=== PATIENT | male | born 1955 | race Asian ===

== ENCOUNTER 2019-04-28 11:41 | Emergency (ER) | payer BC ==
[~2019-04-28] VITALS: Ht 182.9 cm; Wt 107.0 kg
[2019-04-28] MEDS ORDERED: BACITRACIN ZINC OINT UDPKT TOP ONE (12:30)
[2019-04-28] MEDS ORDERED: IBUPROFEN 600MG TABLET PO ONE (12:30)
[2019-04-28] MEDS ORDERED: LIDOCAINE 1%/EPI 1:100,000 10 ML VIAL IJ ONE (12:30)
[2019-04-28] MEDS ORDERED: TETANUS, DIPHTHERIA, PERTUSSIS VAC/PF 0.5ML (>7YR OLD) IM ONE (12:30)
[2019-04-28] MEDS ORDERED: LIDOCAINE HCL/EPINEPHRINE 1%-EPI 1:100,000 20 ML VIAL MC NR (12:35)
[2019-04-28 13:58] VITALS: BP 145/85
== END 2019-04-28 14:05 | disposition home or self-care (01) ==
LOC: ER 11:41
DX: S81.811A Laceration without foreign body, right lower leg, initial encounter (principal); W45.8XXA Other foreign body or object entering through skin, initial encounter; Y93.89 Activity, other specified; Y92.89 Other specified places as the place of occurrence of the external cause; Y99.0 Civilian activity done for income or pay; Z23 Encounter for immunization
CPT/HCPCS: 90471; 90715; 99283; J3490; Z7610

== ENCOUNTER 2019-05-15 12:32 | Emergency (ER) | payer BC ==
[~2019-05-15] VITALS: Ht 170.2 cm; Wt 109.0 kg
[2019-05-15] MEDS ORDERED: BACITRACIN ZINC OINT UDPKT TOP ONE (15:00)
[2019-05-15 15:13] VITALS: BP 118/86
== END 2019-05-15 15:15 | disposition home or self-care (01) ==
LOC: ER 12:32
DX: Z48.02 Encounter for removal of sutures (principal)
CPT/HCPCS: 99283

== ENCOUNTER 2019-05-18 07:56 | Emergency (ER) | payer BC ==
[~2019-05-18] VITALS: Ht 170.2 cm; Wt 111.0 kg
[2019-05-18] MEDS ORDERED: BACITRACIN ZINC OINT UDPKT TOP ONE (09:15)
[2019-05-18 09:37] VITALS: BP 121/84
== END 2019-05-18 09:38 | disposition home or self-care (01) ==
LOC: ER 08:09
DX: S41.112A Laceration without foreign body of left upper arm, initial encounter (principal); Z48.02 Encounter for removal of sutures; Z98.890 Other specified postprocedural states; X58.XXXA Exposure to other specified factors, initial encounter; Y93.89 Activity, other specified; Y92.89 Other specified places as the place of occurrence of the external cause; Y99.8 Other external cause status
CPT/HCPCS: 99283

== ENCOUNTER 2019-05-21 03:32 | Emergency (ER) | payer BC ==
[~2019-05-21] VITALS: Ht 172.7 cm; Wt 82.0 kg
[2019-05-21 04:35] VITALS: BP 152/89
== END 2019-05-21 04:37 | disposition home or self-care (01) ==
LOC: ER 03:32
DX: Z48.00 Encounter for change or removal of nonsurgical wound dressing (principal)
CPT/HCPCS: 99281